=== PATIENT | female | born 1970 | race African-American/Black ===

== ENCOUNTER 2016-12-14 08:22 | Emergency (ER) | payer SELFPAY ==
[2016-12-14 08:56] VITALS: BP 115/67
[2016-12-14 09:26] LABS: BILIRUBIN,URINE NEGATIVE (NEG); GLUCOSE,URINE NEGATIVE (NEG); NITRITE,URINE NEGATIVE (NEG); PH,URINE 6.5; PROTEIN,URINE NEGATIVE (NEG-TRACE); UROBILINOGEN,URINE 0.2 mg/dL (0.2 mg/dL)
[2016-12-14] MEDS ORDERED: CEFTRIAXONE IM 250 MG VIAL. IM ONE (09:30)
[2016-12-14] MEDS ORDERED: AZITHROMYCIN 250 MG TABLET PO ONE (09:30)
[2016-12-14] MEDS ORDERED: SUMATRIPTAN SUCCINATE 25 MG TABLET. PO ONE (09:30)
[2016-12-14] MEDS ORDERED: ONDANSETRON ODT 4 MG TAB.RAPDIS PO ONE (09:30)
[2016-12-14] MEDS ORDERED: METRONIDAZOLE 500 MG TABLET. PO ONE (09:30)
[2016-12-14 09:32] LABS: BACTERIA,URINE 0 /HPF (0-FEW); RBC,URINE 0 /HPF (0-2); SQUAMOUS EPITHELIAL CELL,UR MOD /LPF; WBC,URINE 0 /HPF (0-4)
--- NOTE | 2016-12-14 09:39 | PHYS DOC ---
Past Medical History Past Medical History: Hypertension, Migraines Past Surgical History: Appendectomy, , Tonsillectomy, Tubal ligation, Other Additional Past Surgical Histo: ,ADENOIDECTOMY Alcohol Use: Rarely Drug Use: None Adult General Chief Complaint Chief Complaint: VAGINAL PROBLEM HPI HPI Patient is a 46 year old female who presents with a foul-smelling vaginal discharge for 3 weeks. Patient is concerned about STDs, would like to be tested and treated. She is also complaining of a mild intermittent frontal migraine headaches since this morning. She states she has history of migraine headache and this is consistent with her normal migraine headaches. Patient denies this being the worst headache in her life. Denies any chance she is . Review of Systems Review of Systems Constitutional: Denies fever or chills [] Eyes: Denies change in visual acuity, redness, or eye pain [] HENT: Denies nasal congestion or sore throat [] Respiratory: Denies cough or shortness of breath [] Cardiovascular: No additional information not addressed in HPI [] GI: vaginal discharge : Denies dysuria or hematuria [] Musculoskeletal: Denies back pain or joint pain [] Integument: Denies rash or skin lesions [] Neurologic:migraine headache Endocrine: Denies polyuria or polydipsia [] Current Medications Current Medications Current Medications Medications (Trade) Dose Ordered Sig/Fermin Start Time Stop Time Status Last Admin Dose Admin Azithromycin (Zithromax) 1,000 mg 1X ONCE 12/14/16 09:30 12/14/16 09:31 DC Ceftriaxone Sodium (Rocephin Im) 250 mg 1X ONCE 12/14/16 09:30 12/14/16 09:31 DC Metronidazole (Flagyl) 2,000 mg 1X ONCE 12/14/16 09:30 12/14/16 09:31 DC Ondansetron HCl (Zofran Odt) 4 mg 1X ONCE 12/14/16 09:30 12/14/16 09:31 DC Sumatriptan Succinate (Imitrex) 50 mg 1X ONCE 12/14/16 09:30 12/14/16 09:31 DC 12/14/16 09:30 50 MG Allergies Allergies Allergies Coded Allergies Type Severity Reaction Last Updated Verified No Known Drug Allergies 07/05/15 No Physical Exam Physical Exam Constitutional: Well developed, well nourished, no acute distress, non-toxic appearance. [] HENT: Normocephalic, atraumatic, bilateral external ears normal, oropharynx moist, no oral exudates, nose normal. [] Eyes: PERRLA, EOMI, conjunctiva normal, no discharge. [] Neck: Normal range of motion, no tenderness, supple, no stridor. [] Cardiovascular:Heart rate regular rhythm, no murmur [] Lungs & Thorax: Bilateral breath sounds clear to auscultation [] Abdomen: Bowel sounds normal, soft, no tenderness, no masses, no pulsatile masses. [] Pelvic exam External pelvic appears normal, cervix is closed, no CMT. Trace amount of white vaginal discharge noted in the vaginal vault. No adnexal tenderness. Skin: Warm, dry, no erythema, no rash. [] Back: No tenderness, no CVA tenderness. [] Extremities: No tenderness, no cyanosis, no clubbing, ROM intact, no edema. [] Neurologic: Alert and oriented X 3, normal motor function, normal sensory function, no focal deficits noted. Cranial nerves II-XII intact Psychologic: Affect normal, judgement normal, mood normal. [] Current Patient Data Vital Signs Vital Signs Date Time Temp Pulse Resp B/P Pulse Ox O2 Delivery O2 Flow Rate FiO2 12/14/16 08:56 98.7 94 16 98 Room Air 98.7 Lab Values Laboratory Tests Test 12/14/16 09:00 Urine Collection Type Unknown Urine Color Yellow Urine Clarity Clear Urine pH 6.5 Urine Specific [place] <=1.005 Urine Protein Negativemg/dL (NEG-TRACE) Urine Glucose (UA) Negativemg/dL (NEG) Urine Ketones (Stick) Negativemg/dL (NEG) Urine Blood Small (NEG) Urine Nitrite Negative (NEG) Urine Bilirubin Negative (NEG) Urine Urobilinogen Dipstick 0.2mg/dL (0.2 mg/dL) Urine Leukocyte Esterase Negative (NEG) Urine RBC 0/HPF (0-2) Urine WBC 0/HPF (0-4) Urine Squamous Epithelial Cells Mod/LPF Urine Bacteria 0/HPF (0-FEW) Urine Test Negative (NEG) Microbiology 12/14/16 Wet Prep - Final, Complete EKG EKG [] Radiology/Procedures Radiology/Procedures [] Course & Med Decision Making Course & Med Decision Making Pertinent Labs and Imaging studies reviewed. (See chart for details) Patient is in the ED with vaginal discharge and concern for STD as well as a migraine headache. Negative urine hCG, urine analysis is negative for infection , wet prep is normal. Patient was treated prophylaxis for STD with azithromycin , Flagyl and Rocephin. Educated on safe sex practices especially the need to use protection. Instructed to contact all has sex partners let them know she was treated for STDs and ask them to seek treatment too. Discharged with Imitrex for her headaches. First does was given in the ED. Follow-up with her own PCP or the health department for further concerns related to STDs. Dragon Disclaimer Dragon Disclaimer This electronic medical record was generated, in whole or in part, using a voice recognition dictation system. Departure Departure Impression: Primary Impression: Migraine headache Additional Impression: Concern about STD in female without diagnosis Disposition: 01 HOME, SELF-CARE Condition: STABLE Referrals: NO PCP (PCP) Follow-up with the health department for further concerns related to STDs or your primary care doctor. Patient Instructions: Migraine Headache, Sexually Transmitted Disease Additional Instructions: You were seen for STD concerns and were treated. Please use protection at all times. Please contact all your partners, let them know you were treated for STDs and ask them to seek treatment too. Return to the Ed if your symptoms worsen Scripts Sumatriptan Succinate (Imitrex)50 Mg Tablet1 Tab PO UD #9 TAB Ref 1 Prov:RINA STINSON APRN 12/14/16 Problem Qualifiers Primary Impression: Migraine headache Migraine type: unspecified Status migrainosus presence: without status migrainosus Intractability: not intractable Qualified Code: G43.909 - Migraine, unspecified, not intractable, without status migrainosus RINA STINSON APRN Dec 14, 2016 09:39
[2016-12-14 09:45] LABS: NEG OBC UR NEG; POS OBC UR POS
[2016-12-14] MEDS ORDERED: SUMA50TA3 PO (10:00)
== END 2016-12-14 10:42 | disposition home or self-care (01) ==
LOC: ER 08:22
DX: G43.009 Migraine without aura, not intractable, without status migrainosus (principal); N89.8 Other specified noninflammatory disorders of vagina; I10 Essential (primary) hypertension; Z90.49 Acquired absence of other specified parts of digestive tract; Z98.51 Tubal ligation status; Z98.890 Other specified postprocedural states
CPT/HCPCS: 81001; 81025; 87491; 87591; 96372; 99284; J0696; Q0111; Q0144; Q0162

== ENCOUNTER 2017-04-24 07:00 | Emergency (ER) | payer SELFPAY ==
[~2017-04-24] VITALS: Ht 160 cm; Wt 77.1 kg
[~2017-04-24 07:00] MED LIST: SUMA50TA3 PO
[2017-04-24 07:08] VITALS: BP 123/78
--- NOTE | 2017-04-24 07:19 | PHYS DOC ---
Past Medical History Past Medical History: Hypertension, Migraines Additional Past Medical Histor: 'prediabetes' Past Surgical History: Appendectomy, , Tonsillectomy, Tubal ligation, Other Additional Past Surgical Histo: ,ADENOIDECTOMY Alcohol Use: Rarely Drug Use: None Adult General Chief Complaint Chief Complaint: BACK PAIN - NO INJURY [facility] HPI Patient is a 46 year old female presents to the emergency department with a 2 week history of right upper to right flank pain. Patient states she has increase pain with coughing, sneezing and sometimes taking a deep a breath. Patient denies productive cough, denies fever, chills, nausea or vomiting. Patient denies dysuria. Review of Systems Review of Systems Constitutional: Denies fever or chills [] Eyes: Denies change in visual acuity, redness, or eye pain [] HENT: Denies nasal congestion or sore throat [] Respiratory: Denies cough or shortness of breath [] Cardiovascular: No additional information not addressed in HPI [] GI: Denies abdominal pain, nausea, vomiting, bloody stools or diarrhea [] : Denies dysuria or hematuria [] Musculoskeletal: right mid to right flank back pain denies joint pain [] Integument: Denies rash or skin lesions [] Neurologic: Denies headache, focal weakness or sensory changes [] Endocrine: Denies polyuria or polydipsia [] Current Medications Current Medications Current Medications Medications (Trade) Dose Ordered Sig/[facility] Start Time Stop Time Status Last Admin Dose Admin Ibuprofen (Motrin) 800 mg 1X ONCE 04/24/17 07:30 04/24/17 07:31 DC 04/24/17 07:31 800 MG Allergies Allergies Allergies Coded Allergies Type Severity Reaction Last Updated Verified No Known Drug Allergies 07/05/15 No Physical Exam Physical Exam Constitutional: Well developed, well nourished, no acute distress, non-toxic appearance. [] HENT: Normocephalic, atraumatic, bilateral external ears normal, oropharynx moist, no oral exudates, nose normal. [] Eyes: PERRLA, EOMI, conjunctiva normal, no discharge. [] Neck: Normal range of motion, no tenderness, supple, no stridor. [] Cardiovascular:Heart rate regular rhythm, no murmur [] Lungs & Thorax: Bilateral breath sounds clear to auscultation [] Skin: Warm, dry, no erythema, no rash. [] Back: No tenderness, right CVA tenderness. [] Extremities: No tenderness, no cyanosis, no clubbing, ROM intact, no edema. [] Neurologic: Alert and oriented X 3, normal motor function, normal sensory function, no focal deficits noted. [] Psychologic: Affect normal, judgement normal, mood normal. [] Current Patient Data Vital Signs Vital Signs Date Time Temp Pulse Resp B/P (MAP) Pulse Ox O2 Delivery O2 Flow Rate FiO2 04/24/17 07:08 98.5 73 16 98 Room Air 98.5 Lab Values Laboratory Tests Test 04/24/17 07:27 Urine Collection Type Unknown Urine Color Yellow Urine Clarity Clear Urine pH 6.0 Urine Specific [place] 1.020 Urine Protein Negative mg/dL (NEG-TRACE) Urine Glucose (UA) Negative mg/dL (NEG) Urine Ketones (Stick) Negative mg/dL (NEG) Urine Blood Trace (NEG) Urine Nitrite Negative (NEG) Urine Bilirubin Negative (NEG) Urine Urobilinogen Dipstick 0.2 mg/dL (0.2 mg/dL) Urine Leukocyte Esterase Negative (NEG) Urine RBC 1-2 /HPF (0-2) Urine WBC 0 /HPF (0-4) Urine Squamous Epithelial Cells Few /LPF Urine Bacteria 0 /HPF (0-FEW) Urine Mucus Slight /LPF EKG EKG [] Radiology/Procedures Radiology/Procedures [] Course & Med Decision Making Course & Med Decision Making Pertinent Labs and Imaging studies reviewed. (See chart for details) Patient with a trace blood noted, will treat for cystis, and upper back pain. She will be placed on macrobid and flexeril. Patient was instructed that flexeril will cause drowsiness do not take if you need to be alert and oriented. Ibuprofen 800 mg every hours with food, stop taking if you develop upset stomach. Drink plenty of water and cranberry juice. Avoid cranberry juice cocktail, carbonated beverages, citrus fruits, caffeine and alcohol as these are considered irritants to the bladder. Patient agrees with discharge instructions, treatment regimen and followup recommendations. Patient was provided with signs and symptoms to return to the emergency department Dragon Disclaimer Dragon Disclaimer This electronic medical record was generated, in whole or in part, using a voice recognition dictation system. Departure Departure Impression: Primary Impression: Cystitis Additional Impression: Back pain Disposition: 01 HOME, SELF-CARE Condition: STABLE Referrals: UNKNOWN PCP NAME (PCP) Patient Instructions: Back Pain, Adult, [id number], Urinary Tract Infection, [id number] Additional Instructions: Activity as tolerated Ibuprofen 800 mg every 8 hours with food, stop taking if you develop upset stomach Flexeril for back spasm, this medication will cause drowsiness do not take if you need to be alert and oriented Drink plenty of fluids such as water and cranberry juice Avoid cranberry juice cocktail, carbonated beverages, caffeine, alcohol and citrus fruits as these are considered to be irritants to the bladder Warm moist packs to the back area several times a day Followup with primary care provider in the 3-5 days Return to emergency department as needed for signs and symptoms that become worse. Scripts Cyclobenzaprine Hcl (CYCLOBENZAPRINE HCL) 10 Mg Tablet 10 MG PO TID, #30 TAB Prov: BERNADETTE SHINE APRN 04/24/17 Nitrofurantoin Monohyd/M-Cryst (MACROBID 100 MG CAPSULE) 100 Mg Capsule 1 CAP PO BID, #14 CAP Prov: BERNADETTE SHINE APRN 04/24/17 Problem Qualifiers BERNADETTE SHINE APRN Apr 24, 2017 07:19
[2017-04-24] MEDS ORDERED: IBUPROFEN 800 MG TABLET. PO ONE (07:30)
[2017-04-24 07:36] LABS: BILIRUBIN,URINE NEGATIVE (NEG); GLUCOSE,URINE NEGATIVE (NEG); NITRITE,URINE NEGATIVE (NEG); PROTEIN,URINE NEGATIVE (NEG-TRACE); UROBILINOGEN,URINE 0.2 mg/dL (0.2 mg/dL)
[2017-04-24 07:50] LABS: BACTERIA,URINE 0 /HPF (0-FEW); SQUAMOUS EPITHELIAL CELL,UR FEW /LPF; WBC,URINE 0 /HPF (0-4)
[2017-04-24] MEDS ORDERED: NITR100C62 PO (07:59)
[2017-04-24] MEDS ORDERED: CYCL10TA2 PO (07:59)
== END 2017-04-24 08:05 | disposition home or self-care (01) ==
LOC: ER 07:00
DX: N30.90 Cystitis, unspecified without hematuria (principal); M54.9 Dorsalgia, unspecified; I10 Essential (primary) hypertension; G43.909 Migraine, unspecified, not intractable, without status migrainosus; Z90.49 Acquired absence of other specified parts of digestive tract; Z98.51 Tubal ligation status; Z98.890 Other specified postprocedural states; Z90.89 Acquired absence of other organs
CPT/HCPCS: 81001; 99283

== ENCOUNTER 2017-07-03 11:03 | Emergency (ER) | payer SELFPAY ==
[~2017-07-03] VITALS: Ht 160 cm; Wt 79.4 kg
[~2017-07-03 11:03] MED LIST changes: +CYCL10TA2 PO; +NITR100C62 PO
[2017-07-03 11:16] VITALS: BP 126/78
--- NOTE | 2017-07-03 11:28 | PHYS DOC ---
Past Medical History Past Medical History: Hypertension, Migraines Additional Past Medical Histor: 'prediabetes' Past Surgical History: Appendectomy, , Tonsillectomy, Tubal ligation, Other Additional Past Surgical Histo: ,ADENOIDECTOMY Alcohol Use: Rarely Drug Use: None Adult General Chief Complaint Chief Complaint: EARACHE/EAR PAIN [facility] HPI Patient is a 46 year old female who presents with cold symptoms as well as an earache to the left ear. She states that this has been ongoing for approximately one week. She has not been taking [id number] medications to treat her symptoms. She states that she does have a history of seasonal allergies but denies use of allergy medication as well. Review of Systems Review of Systems Constitutional: Denies fever or chills [] Eyes: Denies change in visual acuity, redness, or eye pain [] HENT: See history of present illness Respiratory: Occasional cough, denies shortness of breath Cardiovascular: No additional information not addressed in HPI [] : Denies dysuria or hematuria [] Musculoskeletal: Denies back pain or joint pain [] Integument: Denies rash or skin lesions [] Neurologic: Denies headache, focal weakness or sensory changes [] Allergies Allergies Allergies Coded Allergies Type Severity Reaction Last Updated Verified No Known Drug Allergies 07/05/15 No Physical Exam Physical Exam Constitutional: Well developed, well nourished, no acute distress, non-toxic appearance. [] HENT: Normocephalic, atraumatic, bilateral external ears normal, left tympanic membrane shows old scarring, right tympanic membrane normal, oropharynx moist, no oral exudates, turbinates are inflamed and erythematous bilaterally, maxillary sinus pressure upon palpation to the left Eyes: PERRLA, EOMI, conjunctiva normal, no discharge. [] Neck: Normal range of motion, no tenderness, supple, no stridor. [] Cardiovascular:Heart rate regular rhythm, no murmur [] Lungs & Thorax: Bilateral breath sounds clear to auscultation [] Skin: Warm, dry, no erythema, no rash. [] Neurologic: Alert and oriented X 3, normal motor function, normal sensory function, no focal deficits noted. [] Psychologic: Affect normal, judgement normal, mood normal. [] Current Patient Data Vital Signs Vital Signs Date Time Temp Pulse Resp B/P (MAP) Pulse Ox O2 Delivery O2 Flow Rate FiO2 07/03/17 11:16 98.5 80 18 99 Room Air 98.5 EKG EKG [] Radiology/Procedures Radiology/Procedures [] Course & Med Decision Making Course & Med Decision Making Pertinent Labs and Imaging studies reviewed. (See chart for details) [] Dragon Disclaimer Dragon Disclaimer This electronic medical record was generated, in whole or in part, using a voice recognition dictation system. Departure Departure Impression: Primary Impression: Sinusitis Additional Impressions: Otalgia Seasonal rhinitis Disposition: HOME, SELF-CARE Condition: STABLE Referrals: NO PCP (PCP) Patient Instructions: Sinusitis Additional Instructions: Follow-up with your PCP in one week or return to the emergency department if not improving. Scripts Fluticasone Propionate (Flonase Allergy Relief) 9.9 Ml Combs.susp 2 SPRAYS NS DAILY, #1 BOTTLE Prov: REYNOLD SETH APRN 07/03/17 Amoxicillin (AMOXICILLIN) 500 Mg Tablet 2 TAB PO BID, #40 TAB Prov: REYNOLD SETH APRN 07/03/17 Problem Qualifiers REYNOLD SETH APRN Jul 03, 2017 11:28
[2017-07-03] MEDS ORDERED: AMOX500T PO (11:32)
[2017-07-03] MEDS ORDERED: FLUT9.9S NS (11:32)
== END 2017-07-03 11:47 | disposition home or self-care (01) ==
LOC: ER 11:03
DX: H92.02 Otalgia, left ear (principal); J32.0 Chronic maxillary sinusitis; J30.2 Other seasonal allergic rhinitis; I10 Essential (primary) hypertension; G43.909 Migraine, unspecified, not intractable, without status migrainosus
CPT/HCPCS: 99283

== ENCOUNTER 2018-11-28 12:53 | Emergency (ER) | payer SELFPAY ==
[~2018-11-28] VITALS: Ht 160 cm; Wt 78.0 kg
[~2018-11-28 12:53] MED LIST changes: +AMOX500T PO; +FLUT9.9S NS
[2018-11-28 13:00] VITALS: BP 112/67
[2018-11-28 13:45] LABS: BILIRUBIN,URINE NEGATIVE (NEG); CLARITY,URINE CLEAR; COLOR,URINE YELLOW; NITRITE,URINE NEGATIVE (NEG); PROTEIN,URINE NEGATIVE (NEG-TRACE); UROBILINOGEN,URINE 0.2 mg/dL (0.2 mg/dL)
[2018-11-28 13:54] LABS: BACTERIA,URINE MOD /HPF (0-FEW); SQUAMOUS EPITHELIAL CELL,UR OCC /LPF
--- NOTE | 2018-11-28 14:25 | PHYS DOC ---
Past Medical History Past Medical History: Depression, Endometriosis, Hypertension, Migraines, STD Additional Past Medical Histor: 'prediabetes' Past Surgical History: Appendectomy, , Tonsillectomy, Tubal ligation, Other Additional Past Surgical Histo: ,ADENOIDECTOMY Alcohol Use: Occasionally Drug Use: None Adult General Chief Complaint Chief Complaint: VAGINAL PROBLEM HPI HPI Patient is a 48 year old female who presents with vaginal discharge. Patient c /o irregular vaginal discharge over the last 5 days. Patient does endorse unsafe sexual practice and fears STD exposure. No pelvic pain, fever, chills, nausea, vomiting. Review of Systems Review of Systems Constitutional: Denies fever or chills Eyes: Denies change in visual acuity HENT: Denies nasal congestion or sore throat Respiratory: Denies cough or shortness of breath Cardiovascular: No additional information not addressed in HPI GI: Denies abdominal pain : Denies dysuria or hematuria Musculoskeletal: Denies back pain Integument: Denies rash or skin lesions All other systems were reviewed and found to be within normal limits, except as documented in this note. Current Medications Current Medications Current Medications Medications (Trade) Dose Ordered Sig/Fermin Start Time Stop Time Status Last Admin Dose Admin Azithromycin (Zithromax) 1,000 mg 1X ONCE 11/28/18 15:15 11/28/18 15:16 DC 11/28/18 15:14 1,000 MG Ceftriaxone Sodium (Rocephin Im) 250 mg 1X ONCE 11/28/18 15:15 11/28/18 15:16 DC 11/28/18 15:13 250 MG Allergies Allergies Allergies Coded Allergies Type Severity Reaction Last Updated Verified No Known Drug Allergies 07/05/15 No Physical Exam Physical Exam Constitutional: Well developed, well nourished, no acute distress, non-toxic appearance HENT: Normocephalic, atraumatic, bilateral external ears normal, oropharynx moist Eyes: PERRLA, EOMI, conjunctiva normal Neck: Normal range of motion, no tenderness Cardiovascular:Heart rate regular rhythm, no murmur Lungs & Thorax: Bilateral breath sounds clear to auscultation Abdomen: Bowel sounds normal, soft, no tenderness, no masses Skin: Warm, dry, no erythema Back: No tenderness, no CVA tenderness Extremities: No tenderness, no cyanosis Neurologic: Alert and oriented X 3 Psychologic: Affect normal Pelvic: normal female external genitalia, vaginal mucosa is moist and uninflamed. Some discharge in the vault that appears physiologic. No cervical motion tenderness. No adnexal tenderness or masses palpated. Current Patient Data Vital Signs Vital Signs Date Time Temp Pulse Resp B/P (MAP) Pulse Ox O2 Delivery O2 Flow Rate FiO2 11/28/18 13:00 98.2 89 14 112/67 (82) 99 Room Air 98.2 Lab Values Laboratory Tests Test 11/28/18 13:20 11/28/18 13:29 Urine Color Yellow Urine Clarity Clear Urine pH 6.0 Urine Specific [place] 1.025 Urine Protein Negative mg/dL (NEG-TRACE) Urine Glucose (UA) Negative mg/dL (NEG) Urine Ketones (Stick) Negative mg/dL (NEG) Urine Blood Moderate (NEG) Urine Nitrite Negative (NEG) Urine Bilirubin Negative (NEG) Urine Urobilinogen Dipstick 0.2 mg/dL (0.2 mg/dL) Urine Leukocyte Esterase Negative (NEG) Urine RBC 3-5 /HPF (0-2) Urine WBC 1-4 /HPF (0-4) Urine Squamous Epithelial Cells Occ /LPF Urine Bacteria Mod /HPF (0-FEW) Urine Mucus Mod /LPF POC Urine HCG, Qualitative Hcg negative (Negative) Microbiology 11/28/18 Wet Prep - Final, Complete EKG EKG [] Radiology/Procedures Radiology/Procedures [] Course & Med Decision Making Course & Med Decision Making Pertinent Labs and Imaging studies reviewed. (See chart for details) Patient is examined for vaginal discharge. Pelvic exam completed and accompanied by female RN. Cultures sent to lab. 15:30: All results reviewed and discussed with the patient. Patient is treated empirically in the ER with Rocephin and azithromycin. Sexual precautions were explicitly discussed. She was discharged to home and advised to return to the ER for any new or worsening symptoms. All of her questions were answered. Dragon Disclaimer Dragon Disclaimer This electronic medical record was generated, in whole or in part, using a voice recognition dictation system. Departure Departure Disposition: HOME, SELF-CARE Condition: GOOD Referrals: NO PCP (PCP) ART DSA DO Nov 28, 2018 14:25
[2018-11-28] MEDS: cefTRIAXone IM 250 MG VIAL IM ONE (15:13)
[2018-11-28] MEDS: AZITHROMYCIN 250 MG TABLET. PO ONE (15:14)
[2018-11-29 13:28] LABS: GC PROBE Negative (Negative)
== END 2018-11-28 15:40 | disposition home or self-care (01) ==
LOC: ER 12:53
DX: N89.8 Other specified noninflammatory disorders of vagina (principal); Z20.2 Contact with and (suspected) exposure to infections with a predominantly sexual mode of transmission; F32.9 Major depressive disorder, single episode, unspecified; I10 Essential (primary) hypertension; G43.909 Migraine, unspecified, not intractable, without status migrainosus; Z90.89 Acquired absence of other organs; Z98.890 Other specified postprocedural states; Z98.51 Tubal ligation status
CPT/HCPCS: 81001; 81025; 87491; 87591; 96372; 99283; J0696; Q0111; Q0144

== ENCOUNTER 2019-05-16 09:27 | Emergency (ER) | payer SELFPAY ==
[~2019-05-16] VITALS: Ht 160 cm; Wt 74.4 kg
[2019-05-16] MEDS ORDERED: DEXAMETHASONE 4 MG TABLET PO STA (09:49)
--- NOTE | 2019-05-16 09:59 | PHYS DOC ---
Past Medical History Past Medical History: Depression, Endometriosis, Hypertension, Migraines, STD Additional Past Medical Histor: 'prediabetes'; "water around heart" Past Surgical History: Appendectomy, , Tonsillectomy, Tubal ligation, Other Additional Past Surgical Histo: ,ADENOIDECTOMY Smoking: Quit Greater Than 1 Year Alcohol Use: Occasionally Drug Use: None Adult General Chief Complaint Chief Complaint: HEADACHE HPI HPI Patient is a 48 year old female who presents with multiple symptoms. The patient states that she for the last week has been having nasal congestion, sinus pressure, sore throat, dizziness, headache, and is light-sensitive. Has history of anemia. The patient describes the headache as a frontal headache behi nd her eyes bilaterally. The patient states she has a history of migraines. Denies this is the worst headache of her life. Denies a thunderclap headache. States she's also vomited 4 times over the last week. Describes the dizziness as lightheadedness denies it is the room spinning. Rates her pain as 8 out of 10 and states it is throbbing. She has been under increased stress over the last couple weeks due to family illness. Review of Systems Review of Systems Constitutional: Denies fever or chills [] Eyes: Denies change in visual acuity, redness, or eye pain [] HENT: Reports nasal congestion or sore throat [] Respiratory: Denies cough or shortness of breath [] Cardiovascular: No additional information not addressed in HPI [] GI: Denies abdominal pain, Reports nausea, vomiting, and diarrhea [] : Denies dysuria or hematuria [] Musculoskeletal: Denies back pain or joint pain [] Integument: Denies rash or skin lesions [] Neurologic: Reports headache and lightheadedness Denies focal weakness or sensory changes [] Endocrine: Denies polyuria or polydipsia [] Complete systems were reviewed and found to be within normal limits, except as documented in this note. Current Medications Current Medications Current Medications Medications (Trade) Dose Ordered Sig/Fermin Start Time Stop Time Status Last Admin Dose Admin Dexamethasone (Decadron) 10 mg 1X STAT 05/16/19 09:49 05/16/19 09:57 DC 05/16/19 10:06 10 MG Lidocaine HCl 20 ml 1X ONCE 05/16/19 10:00 05/16/19 10:01 DC 05/16/19 10:05 20 ML Prochlorperazine Edisylate (Compazine) 10 mg 1X ONCE 05/16/19 10:00 05/16/19 10:01 DC 05/16/19 10:06 10 MG Sodium Chloride 1,000 ml @ 1,000 mls/hr 1X ONCE 05/16/19 10:00 05/16/19 10:59 DC 05/16/19 10:06 1,000 MLS/HR Allergies Allergies Allergies Coded Allergies Type Severity Reaction Last Updated Verified No Known Drug Allergies 07/05/15 No Physical Exam Physical Exam Constitutional: Well developed, well nourished, no acute distress, non-toxic appearance. [] HENT: Normocephalic, atraumatic, bilateral external ears normal, oropharynx moist, no oral exudates, nose normal. [] Eyes: PERRLA, EOMI, conjunctiva normal, no discharge. [] Neck: Normal range of motion, no tenderness, supple, no stridor. [] Cardiovascular:Heart rate regular rhythm, no murmur [] Lungs & Thorax: Bilateral breath sounds clear to auscultation [] Abdomen: Bowel sounds normal, soft, no tenderness, no masses, no pulsatile masses. [] Skin: Warm, dry, no erythema, no rash. [] Back: No tenderness, no CVA tenderness. [] Extremities: No tenderness, no cyanosis, no clubbing, ROM intact, no edema. [] Neurologic: Alert and oriented X 3, normal motor function, normal sensory function, no focal deficits noted. [] Psychologic: Affect normal, judgement normal, mood normal. [] Current Patient Data Vital Signs Vital Signs Date Time Temp Pulse Resp B/P (MAP) Pulse Ox O2 Delivery O2 Flow Rate FiO2 05/16/19 09:35 98.0 82 16 116/63 (80) 99 Room Air 98.0 Lab Values Laboratory Tests Test 05/16/19 09:57 White Blood Count 4.1 x10^3/uL (4.0-11.0) Red Blood Count 4.45 x10^6/uL (3.50-5.40) Hemoglobin 8.2 g/dL (12.0-15.5) L Hematocrit 26.7 % (36.0-47.0) L Mean Corpuscular Volume 60 fL (79-100) L Mean Corpuscular Hemoglobin 18 pg (25-35) L Mean Corpuscular Hemoglobin Concent 31 g/dL (31-37) Red Cell Distribution Width 19.9 % (11.5-14.5) H Platelet Count 197 x10^3/uL (140-400) Neutrophils (%) (Auto) 48 % (31-73) Lymphocytes (%) (Auto) 40 % (24-48) Monocytes (%) (Auto) 11 % (0-9) H Eosinophils (%) (Auto) 1 % (0-3) Basophils (%) (Auto) 1 % (0-3) Neutrophils # (Auto) 2.0 x10^3uL (1.8-7.7) Lymphocytes # (Auto) 1.6 x10^3/uL (1.0-4.8) Monocytes # (Auto) 0.4 x10^3/uL (0.0-1.1) Eosinophils # (Auto) 0.0 x10^3/uL (0.0-0.7) Basophils # (Auto) 0.1 x10^3/uL (0.0-0.2) Platelet Estimate Pending Sodium Level 137 mmol/L (136-145) Potassium Level 3.9 mmol/L (3.5-5.1) Chloride Level 103 mmol/L (98-107) Carbon Dioxide Level 24 mmol/L (21-32) Anion Gap 10 (6-14) Blood Urea Nitrogen 8 mg/dL (7-20) Creatinine 0.8 mg/dL (0.6-1.0) Estimated GFR (Cockcroft-Gault) 91.9 BUN/Creatinine Ratio 10 (6-20) Glucose Level 95 mg/dL (70-99) Calcium Level 8.6 mg/dL (8.5-10.1) Total Bilirubin 0.2 mg/dL (0.2-1.0) Aspartate Amino Transferase (AST) 24 U/L (15-37) Alanine Aminotransferase (ALT) 28 U/L (14-59) Alkaline Phosphatase 53 U/L (46-116) Total Protein 7.1 g/dL (6.4-8.2) Albumin 3.5 g/dL (3.4-5.0) Albumin/Globulin Ratio 1.0 (1.0-1.7) Laboratory Tests 7/2/19 09:57 Laboratory Tests 05/16/19 09:57 EKG EKG [] Radiology/Procedures Radiology/Procedures Placed 2% lidocaine on swab and placed in bilateral nares. Course & Med Decision Making Course & Med Decision Making Pertinent Labs and Imaging studies reviewed. (See chart for details) Patient is reporting symptoms of Upper Respiratory Infection that appears to have spurred on a migraine. Will treat with fluids, Decadron, draw labs to check anemia. Will try intranasal lidocaine to help frontal headache. Will also give Compazine to treat headache/nausea. Patient is agreeable to this Intranasal lidocaine improved headache from 8 to 4/10. Labs show hemoglobin of 8.2. Last hemoglobin results several years ago showed a 10.1. Patient has not been taking her Iron. Discussed this with the patient and she agreed to start taking her Iron again and follow up with primary care. On reevaluation of patient headache is down to 1/10, she is feeling better. Will d/c home. Dragon Disclaimer Dragon Disclaimer This electronic medical record was generated, in whole or in part, using a voice recognition dictation system. Departure Departure Impression: Primary Impression: Upper respiratory infection Additional Impressions: Migraine headache Anemia Disposition: HOME, SELF-CARE Condition: STABLE Referrals: NO PCP (PCP) Patient Instructions: Anemia, FAQs, Iron Deficiency Anemia Additional Instructions: Thank you for visiting [facility]. We appreciate you trusting us with your care. If any additional problems come up don't hesitate to return to visit us. Please follow up with your primary care provider so they can plan additional care if needed and know about the problem that you had. If symptoms worsen come back to the Emergency Department. Any concerning symptoms that start such as chest pain, shortness of Air, weakness or numbness on one side of the body, running high fevers or any other concerning symptoms return to the ER. Please start taking your iron again and follow up with PCP. Start taking Zyrtec, Mucinex, and Flonase for symptoms. Follow labels on medications. Problem Qualifiers Primary Impression: Upper respiratory infection URI type: unspecified viral URI Qualified Codes: J06.9 - Acute upper respiratory infection, unspecified Additional Impressions: Anemia Anemia type: iron deficiency GAL REDDY APRN May 16, 2019 09:59
[2019-05-16] MEDS ORDERED: PROCHLORPERAZINE 10 MG/2 ML VIAL. IV ONE (10:00)
[2019-05-16] MEDS ORDERED: IV NORMAL SALINE 1000ML BAG 1,000 ML IV ONE (10:00)
[2019-05-16] MEDS ORDERED: LIDOCAINE 2% 20 ML VIAL. IJ ONE (10:00)
[2019-05-16 10:16] LABS: BASO # 0.1 x10^3/uL (0.0-0.2); BASO % 1 % (0-3); EOS % 1 % (0-3); HEMATOCRIT 26.7 % (36.0-47.0); HEMOGLOBIN 8.2 g/dL (12.0-15.5); LYMPH # 1.6 x10^3/uL (1.0-4.8); LYMPH % 40 % (24-48); MEAN CORPUSCULAR HEMOGLOBIN 18 pg (25-35); MEAN CORPUSCULAR HGB CONC 31 g/dL (31-37); MEAN CORPUSCULAR VOLUME 60 fL (79-100); MONO # 0.4 x10^3/uL (0.0-1.1); MONO % 11 % (0-9); NEUT % 48 % (31-73); PLATELET COUNT 197 x10^3/uL (140-400); RED BLOOD COUNT 4.45 x10^6/uL (3.50-5.40); RED CELL DISTRIBUTION WIDTH 19.9 % (11.5-14.5); WHITE BLOOD COUNT 4.1 x10^3/uL (4.0-11.0)
[2019-05-16 10:19] LABS: CALCIUM 8.6 mg/dL (8.5-10.1); CREATININE 0.8 mg/dL (0.6-1.0); GFR 91.9; POTASSIUM 3.9 mmol/L (3.5-5.1)
[2019-05-16 10:25] LABS: ALBUMIN 3.5 g/dL (3.4-5.0); TOTAL BILIRUBIN 0.2 mg/dL (0.2-1.0); TOTAL PROTEIN 7.1 g/dL (6.4-8.2)
[2019-05-16 11:41] VITALS: BP 127/71
[2019-05-16 11:59] LABS: ANISOCYTOSIS MOD; MICROCYTOSIS SLIGHT; PLT ESTIMATE ADEQUATE (ADEQUATE)
== END 2019-05-16 11:59 | disposition home or self-care (01) ==
LOC: ER 09:27
DX: J06.9 Acute upper respiratory infection, unspecified (principal); G43.909 Migraine, unspecified, not intractable, without status migrainosus; D50.9 Iron deficiency anemia, unspecified; R42 Dizziness and giddiness; F32.9 Major depressive disorder, single episode, unspecified; I10 Essential (primary) hypertension; Z87.891 Personal history of nicotine dependence; Z90.89 Acquired absence of other organs; Z98.890 Other specified postprocedural states; Z98.51 Tubal ligation status
CPT/HCPCS: 36415; 80053; 85025; 96361; 96374; 99284; J0780; J2001; J7030; J8540

== ENCOUNTER 2019-08-24 14:57 | Emergency (ER) | payer SELFPAY ==
[~2019-08-24] VITALS: Ht 157.5 cm; Wt 76.2 kg
[2019-08-24] MEDS ORDERED: ONDANSETRON PF 4 MG/2 ML VIAL. IVP ONE (15:45)
[2019-08-24] MEDS ORDERED: IV NORMAL SALINE 1000ML BAG 1,000 ML IV ONE (15:45)
[2019-08-24] MEDS ORDERED: KETOROLAC 30 MG/ML VIAL. IV ONE (15:45)
[2019-08-24] MEDS ORDERED: methylPREDNISolone SOD SUCC PF 125 MG/2 ML VIAL. IV ONE (15:45)
--- NOTE | 2019-08-24 15:54 | PHYS DOC ---
Past Medical History Past Medical History: Depression, Endometriosis, Hypertension, Migraines, STD Additional Past Medical Histor: 'prediabetes'; "water around heart" Past Surgical History: Appendectomy, , Tonsillectomy, Tubal ligation, Other Additional Past Surgical Histo: ,ADENOIDECTOMY Alcohol Use: Occasionally Drug Use: None Adult General Chief Complaint Chief Complaint: HEADACHE HPI HPI Patient is a 48 year old female with history of depression, hypertension, migraine headaches, who presents to the ED today complaining of mild left-sided intermittent headaches for 3 days. Patient is also complaining of photosensitivity, denies any nausea vomiting and she states she's had similar headaches before. She states she thought it's a blood pressure but she is compliant with her medications. Denies any chest pain or shortness of breath. She states her headache is worsened with laying on the left side as well as noise and light Review of Systems Review of Systems Constitutional: Denies fever or chills [] Eyes: Denies change in visual acuity, redness, or eye pain [] HENT: Denies nasal congestion or sore throat [] Respiratory: Denies cough or shortness of breath [] Cardiovascular: No additional information not addressed in HPI [] GI: Denies abdominal pain, nausea, vomiting, bloody stools or diarrhea [] : Denies dysuria or hematuria [] Musculoskeletal: Denies back pain or joint pain [] Integument: Denies rash or skin lesions [] Neurologic: Reports left-sided headache, denies focal weakness or sensory changes [] All other systems were reviewed and found to be within normal limits, except as documented in this note. Current Medications Current Medications Current Medications Medications (Trade) Dose Ordered Sig/Fermin Start Time Stop Time Status Last Admin Dose Admin Ketorolac Tromethamine (Toradol 30mg Vial) 30 mg 1X ONCE 08/24/19 15:45 08/24/19 15:46 DC 08/24/19 15:42 30 MG Methylprednisolone Sodium Succinate (SOLU-Medrol 125MG VIAL) 125 mg 1X ONCE 08/24/19 15:45 08/24/19 15:46 DC 08/24/19 15:42 125 MG Ondansetron HCl (Zofran) 4 mg 1X ONCE 08/24/19 15:45 08/24/19 15:46 DC 08/24/19 15:42 4 MG Sodium Chloride 1,000 ml @ 1,000 mls/hr 1X ONCE 08/24/19 15:45 08/24/19 16:44 DC 08/24/19 15:41 1,000 MLS/HR Allergies Allergies Allergies Coded Allergies Type Severity Reaction Last Updated Verified No Known Drug Allergies 07/05/15 No Physical Exam Physical Exam Constitutional: Well developed, well nourished, no acute distress, non-toxic appearance. [] HENT: Normocephalic, atraumatic, bilateral external ears normal, oropharynx moist, no oral exudates, nose normal. [] Eyes: PERRLA, EOMI, conjunctiva normal, no discharge. [] Neck: Normal range of motion, no tenderness, supple, no stridor. [] Cardiovascular:Heart rate regular rhythm, no murmur [] Lungs & Thorax: Bilateral breath sounds clear to auscultation [] Abdomen: Bowel sounds normal, soft, no tenderness, no masses, no pulsatile masses. [] Skin: Warm, dry, no erythema, no rash. [] Back: No tenderness, no CVA tenderness. [] Extremities: No tenderness, no cyanosis, no clubbing, ROM intact, no edema. [] Neurologic: Alert and oriented X 3, normal motor function, normal sensory function, no focal deficits noted. Cranial nerves II through XII intact Psychologic: Affect normal, judgement normal, mood normal. [] Current Patient Data Vital Signs Vital Signs Date Time Temp Pulse Resp B/P (MAP) Pulse Ox O2 Delivery O2 Flow Rate FiO2 08/24/19 16:00 90 18 99 08/24/19 15:37 97.8 125/63 (83) Room Air 97.8 EKG EKG [] Radiology/Procedures Radiology/Procedures [] Course & Med Decision Making Course & Med Decision Making Pertinent Labs and Imaging studies reviewed. (See chart for details) This is a 48-year-old female patient presenting to the ED today with a headache that began 3 days ago. Has history of migraine headaches, blood pressure is normal in the ED. Headache consistent with a migraine. Patient was given IV fluids, Toradol, Zofran and Solu-Medrol. Feeling better, BP is still normal. Patient was discharged to home. Follow-up with PCP in 1-2 weeks. Dragon Disclaimer Dragon Disclaimer This electronic medical record was generated, in whole or in part, using a voice recognition dictation system. Departure Departure Impression: Primary Impression: Migraine headache Disposition: HOME, SELF-CARE Condition: STABLE Referrals: NO PCP (PCP) follow up with your doctor in 1-2 weeks Patient Instructions: Migraine Headache, [id number] Additional Instructions: You were evaluated with a migraine headache. Please follow-up with your primary care doctor in 1-2 weeks. Take the prescribed pain medicine as needed for your migraine headache. Continue following up with your own doctor in the next 1-2 weeks. Scripts Sumatriptan Succinate (IMITREX) 50 Mg Tablet 1 TAB PO UD, #9 TAB 1 Refill Prov: RINA STINSON APRN 08/24/19 Problem Qualifiers Primary Impression: Migraine headache Migraine type: unspecified Status migrainosus presence: without status migrainosus Intractability: not intractable Qualified Codes: G43.909 - Migraine, unspecified, not intractable, without status migrainosus RINA STINSON APRN Aug 24, 2019 15:54
[2019-08-24] MEDS ORDERED: SUMA50TA3 PO (16:57)
[2019-08-24 17:29] VITALS: BP 126/68
== END 2019-08-24 17:40 | disposition home or self-care (01) ==
LOC: ER 14:57
DX: G43.909 Migraine, unspecified, not intractable, without status migrainosus (principal); I10 Essential (primary) hypertension
CPT/HCPCS: 96374; 96375; 99285; J1885; J2405; J2930; J7030

== ENCOUNTER 2019-11-11 10:15 | Emergency (ER) | payer BC ==
[~2019-11-11] VITALS: Ht 157.5 cm; Wt 74.8 kg
[2019-11-11 11:15] VITALS: BP 127/69
[2019-11-11] MEDS ORDERED: NAPR-514 PO (11:40)
[2019-11-11] MEDS ORDERED: CYCL10TA2 PO (11:40)
[2019-11-11] MEDS ORDERED: METH4TAB2 PO (11:40)
--- NOTE | 2019-11-11 11:40 | PHYS DOC ---
Past Medical History Past Medical History: Depression, Endometriosis, Hypertension, Migraines, STD Additional Past Medical Histor: 'prediabetes'; "water around heart" (RINA STINSON APRN) Past Surgical History: Appendectomy, , Tonsillectomy, Tubal ligation, Other Additional Past Surgical Histo: ,ADENOIDECTOMY (RINA STINSON APRN) Alcohol Use: None Drug Use: None (RINA STINSON APRN) Adult General Chief Complaint Chief Complaint: LOWER EXT PAIN HPI HPI Patient is a 49 year old female with history of depression, hypertension, who presents to the ED today complaining of bilateral groin pain rated at 8 out of 10 described as sharp and intermittent worse on external rotation of bilateral hips that began on November 09, 2019 after pushing some heavy at work. Patient denies taking anything to relieve the pain. (RINA STINSON APRN) Review of Systems Review of Systems Constitutional: Denies fever or chills [] Musculoskeletal: Reports bilateral groin pain Integument: Denies rash or skin lesions [] Neurologic: Denies headache, focal weakness or sensory changes [] All other systems were reviewed and found to be within normal limits, except as documented in this note. (RINA STINSON APRN) Allergies Allergies Allergies Coded Allergies Type Severity Reaction Last Updated Verified No Known Drug Allergies 07/05/15 No (GLA HANDY DO) Physical Exam Physical Exam Constitutional: Well developed, well nourished, no acute distress, non-toxic appearance. [] Skin: Warm, dry, no erythema, no rash. [] Back: No tenderness, no CVA tenderness. [] Extremities: No tenderness, no cyanosis, no clubbing, ROM intact, no edema. Pain elicited on external rotation of bilateral hips. Neurologic: Alert and oriented X 3, normal motor function, normal sensory function, no focal deficits noted. [] Psychologic: Affect normal, judgement normal, mood normal. [] (RINA STINSON APRN) Current Patient Data Vital Signs Vital Signs Date Time Temp Pulse Resp B/P (MAP) Pulse Ox O2 Delivery O2 Flow Rate FiO2 11/11/19 11:15 98.6 93 18 127/69 (88) 99 Room Air 98.6 (GAL HANDY DO) EKG EKG [] (RINA STINSON APRN) Radiology/Procedures Radiology/Procedures [] (RINA STINSON APRN) Course & Med Decision Making Course & Med Decision Making Pertinent Labs and Imaging studies reviewed. (See chart for details) This is a 49-year-old female patient with bilateral groin pain from heavy pushing at work. Discharged with Medrol Dosepak naproxen and Flexeril. Follow-up with PCP in 2 weeks. Ice elevation encouraged. Note for work provided per her request (RINA STINSON APRN) Dragon Disclaimer Dragon Disclaimer This electronic medical record was generated, in whole or in part, using a voice recognition dictation system. (RINA STINSON APRN) Departure Departure Impression: Primary Impression: Strain of left inguinal muscle Additional Impression: Strain of right inguinal muscle Disposition: 01 HOME, SELF-CARE Condition: STABLE Referrals: NO PCP (PCP) follow up with your doctor in 1-2 weeks Patient Instructions: Groin Strain Additional Instructions: You have bilateral groin strain. Try to ice and elevate the affected areas. Take the prescribed medications as ordered. Follow-up with your own doctor in 2 weeks if symptoms persist. Scripts Methylprednisolone (MEDROL) 4 Mg Tab.ds.pk 1 PKG PO UD, #1 PKG Prov: RINA STINSON APRN 11/11/19 Naproxen (NAPROXEN) 500 Mg Tablet 1 TAB PO BID for pain for 30 Days, #20 TAB 0 Refills Prov: RINA STINSON APRN 11/11/19 Cyclobenzaprine Hcl (CYCLOBENZAPRINE HCL) 10 Mg Tablet 1 TAB PO TID, #30 TAB Prov: RINA STINSON APRN 11/11/19 Attending Signature Attending Signature I have reviewed the PA/FIELD MARKETING REPRESENTATIVE's note and plan of care. I was available for consultation as needed during the patient's visit in the emergency department. I agree with the clinical impression, plan, and disposition. (GAL HANDY DO) Problem Qualifiers Primary Impression: Strain of left inguinal muscle Encounter type: initial encounter Qualified Codes: S39.013A - Strain of muscle, fascia and tendon of pelvis, initial encounter Additional Impression: Strain of right inguinal muscle Encounter type: initial encounter Qualified Codes: S39.013A - Strain of muscle, fascia and tendon of pelvis, initial encounter RINA STINSON APRN Nov 11, 2019 11:40 GAL HANDY DO Nov 11, 2019 17:44
== END 2019-11-11 11:45 | disposition home or self-care (01) ==
LOC: ER 10:15
DX: S39.013A Strain of muscle, fascia and tendon of pelvis, initial encounter (principal); I10 Essential (primary) hypertension; G43.909 Migraine, unspecified, not intractable, without status migrainosus; Z90.89 Acquired absence of other organs; Z98.51 Tubal ligation status; Z98.890 Other specified postprocedural states; X50.9XXA Other and unspecified overexertion or strenuous movements or postures, initial encounter; Y93.89 Activity, other specified; Y92.69 Other specified industrial and construction area as the place of occurrence of the external cause; Y99.0 Civilian activity done for income or pay
CPT/HCPCS: 99283

== ENCOUNTER 2021-01-04 02:03 | Emergency (ER) | payer SELFPAY ==
[~2021-01-04] VITALS: Ht 160 cm; Wt 80.9 kg
[~2021-01-04 02:03] MED LIST changes: +METH4TAB2 PO; +NAPR-514 PO
[2021-01-04] MEDS ORDERED: DEXAMETHASONE 4 MG TABLET PO ONE (03:15)
--- NOTE | 2021-01-04 03:21 | RAD ---
AP portable chest radiograph 01/04/2021 Clinical History: Cough and shortness of breath.. An AP erect portable digital radiograph of the chest was obtained. Comparison study is dated 09/23/2011. The cardiac silhouette is borderline enlarged. The thoracic aorta is mildly tortuous. No acute pulmon migue infiltrate is seen. No pleural effusion or pneumothorax is noted. Degenerative changes are seen i nvolving the thoracic spine and both shoulders. Impression: No acute abnormality is seen. Electronically signed by: Chung Sams MD (01/04/2021 3:18 AM) [id number]
[2021-01-04] MEDS ORDERED: ALBU2.5V8 IH (03:30)
--- NOTE | 2021-01-04 03:31 | PHYS DOC ---
Past Medical History Past Medical History: Depression, Endometriosis, Hypertension, Migraines, STD Additional Past Medical Histor: 'prediabetes'; "water around heart" Past Surgical History: Appendectomy, , Tonsillectomy, Tubal ligation, Other Additional Past Surgical Histo: ,ADENOIDECTOMY Smoking Status: Never Smoker Alcohol Use: None Drug Use: None General Adult EDM: Chief Complaint: MULTIPLE COMPLAINTS HPI: HPI: Patient is a 50 year old [f__sex] who presents with [] Review of Systems: Review of Systems: Constitutional: Denies fever or chills Eyes: Denies redness or eye pain HENT: Denies nasal congestion or sore throat Respiratory: Denies cough or shortness of breath Cardiovascular: Denies chest pain or palpitations GI: Denies abdominal pain, nausea, or vomiting : Denies dysuria or hematuria Musculoskeletal: Denies back pain or joint pain Integument: Denies rash or skin lesions Neurologic: Denies headache, focal weakness or sensory changes Complete systems were reviewed and found to be within normal limits, except as documented in this note. Current Medications: Current Medications Medications (Trade) Dose Ordered Sig/Fermin Start Time Stop Time Status Last Admin Dose Admin Dexamethasone (Decadron) 10 mg 1X ONCE 01/04/21 03:15 01/04/21 03:16 DC 01/04/21 03:15 10 MG Allergies: Allergies: Allergies Coded Allergies Type Severity Reaction Last Updated Verified No Known Drug Allergies 07/05/15 No Physical Exam: PE: Constitutional: Well developed, well nourished, no acute distress, non-toxic appearance HENT: Normocephalic, atraumatic Eyes: PERRL, EOMI, conjunctiva normal, no discharge Neck: Normal range of motion, no tenderness, supple Lungs & Thorax: No respiratory distress, equal chest rise and fall Abdomen: Soft, no tenderness Skin: Warm, dry, no erythema, no rash Back: No tenderness, no CVA tenderness Extremities: No tenderness, ROM intact, no edema Neurologic: Alert and oriented X 3, normal motor function, normal sensory function, no focal deficits noted Psychologic: Affect normal, judgment normal EKG: EKG: [] Radiology/Procedures: Radiology/Procedures: PROCEDURE: CHEST AP ONLY AP portable chest radiograph 01/04/2021 Clinical History: Cough and shortness of breath.. An AP erect portable digital radiograph of the chest was obtained. Comparison study is dated 09/23/2011. The cardiac silhouette is borderline enlarged. The thoracic aorta is mildly tortuous. No acute pulmonary infiltrate is seen. No pleural effusion or pneumothorax is noted. Degenerative changes are seen involving the thoracic sp ine and both shoulders. Impression: No acute abnormality is seen. Electronically signed by: Chung Sams MD (01/04/2021 3:18 AM) [id number] Course & Med Decision Making: Course & Med Decision Making Pertinent Labs and Imaging studies reviewed. (See chart for details) Patient stable for discharge with outpatient follow-up with PCP. Discussed findings and plan with patient, who acknowledges understanding and agreement. COVID-19 CRITERIA: The patient was evaluated during the global COVID-19 pandemic, and that diagnosis was suspected/considered upon their initial presentation. Their evaluation, treatment and testing was consistent with current guidelines for patients who present with complaints or symptoms that may be related to COVID-19. Dragon Disclaimer: Dragon Disclaimer: This electronic medical record was generated, in whole or in part, using a voice recognition dictation system. Departure Departure Impression: Primary Impression: Viral syndrome Additional Impression: Suspected 2019 novel coronavirus infection Disposition: 01 DC HOME SELF CARE/HOMELESS Condition: STABLE Referrals: NO PCP (PCP) Patient Instructions: Viral Syndrome Additional Instructions: You have been tested for or diagnosed with COVID-19. It is an infection caused by a new type of coronavirus. COVID-19 will cause cold-like or mild flu symptoms in most. It can cause more severe symptoms like problems breathing in some. There is no treatment for COVID-19. The body will clear the infection over time. Self-care will help to ease discomfort. Steps to Take: Self-Care Rest as needed. Healthy habits may help you feel better. Steps include: Choose healthy foods including fruits and vegetables. Drink water throughout the day. Get plenty of sleep each night. If you smoke, try to quit. It may ease breathing. Avoid alcohol. Keep Others Healthy The virus can spread to others. Droplets are released every time you sneeze or cough. The droplets can get into the mouth, nose, or eyes of people near you and lead to infection. To lower the chances of spreading COVID-19 to others: Stay at home until your doctor has said it is safe to leave. If you tested positive this will mean staying isolated until both of the following are true: At least 7 days have passed since the start of illness. You are free of fever for at least 72 hours without the use of medicine. During this time: - Avoid public areas, events, or transportation. Do not return to work or school until your doctor has said it is safe to do so. - Call ahead if you need to go to a medical center. Let them know you may have COVID-19. It will help them guide you where to go. They may also ask you to wear a facemask when you come to the office. - If you call for emergency medical services, let them know you may have COVID- 19. While at home: - Try to avoid close contact with others. Stay about 6 feet away. - If possible, spend most of your time in a separate room from others. - Use a face mask if you will be in close contact with others such as sharing a room or vehicle. - Have someone wipe down common surfaces in the home. Use household cricket coach every day on areas like doorknobs, counters, or sinks. - Cough or sneeze into a tissue. Throw the tissue away right after use. If a ti ssue is not available, cough or sneeze into your elbow. - Wash your hands often. Wash them after sneezing or coughing. Use soap and water and wash for at least 20 seconds. Alcohol based hand beer coil cleaner can be used if soap and water is not available. - Do not prepare food for others. Avoid sharing personal items like forks, spoons, or toothbrushes. - Avoid close contact with pets while you are sick. There is no evidence of the virus passing to pets. This is a safety step until more is known about this virus. Isolation can be frustrating. Social interaction can help. Keep in touch with friends and family through phone and tech options. You can still interact with others in your home, just keep a safe distance of about 6 feet. Follow-up: Your doctors office will check in with you to see if there are any changes in your health. You may be asked to keep track of symptoms to share with them. They will also let you know when you are clear to be in public again. Problems to Look Out For: Contact your doctor if your recovery is not going as you expect. Get emergency care if you have problems such as: - Trouble breathing - Nonstop chest pain or pressure - Changes in awareness, confusion, or problems waking - Lips or face have bluish color - Worsening of symptoms If you think you have an emergency, call for emergency medical services right away. [facility] Albuterol Sulfate (PROAIR HFA INHALER) 8.5 Gm Hfa.aer.ad 2 PUFF IH PRN Q4-6HRS PRN for SHORTNESS OF BREATH, #1 INHALER 0 Refills Prov: GAL HANDY DO 01/04/21 COVID-19 Assessment: COVID-19 Patient Risks: Age 65 or older: No Sign of co-morbidity: No Exp to person + for COVID: No Exp to PUI: No Travel from affected area: No Lower respiratory symptoms: Yes Fever: No Other: Yes PPE Use: Full PPE with N95 mask or PAPR: Yes GAL HANDY DO Jan 04, 2021 03:31
[2021-01-04 03:34] VITALS: BP 138/76
--- NOTE | 2021-01-06 09:15 | NUR ---
IP: Attempted to contact pt concerning COVID results. No answer. Left a voicemail to return the call.
== END 2021-01-04 03:39 | disposition home or self-care (01) ==
LOC: ER 02:03
DX: B34.9 Viral infection, unspecified (principal); Z20.822 Contact with and (suspected) exposure to COVID-19
CPT/HCPCS: 71045; 99284; C9803; U0003